=== PATIENT | female | born 1980 | race Caucasian/White ===

== ENCOUNTER 2022-12-20 00:35 | Day surgery (SDC) | payer OTHER, SELFPAY ==
[2022-12-13 12:40] VITALS: BMI 22.1
--- NOTE | 2022-12-13 12:44 | PC.NURSE ---
Report to the Outpatient Waiting Room, entrance under the green pavilion located off [facility], at time 7:30 on date 12/20/22. Planned Procedure Time: 9:30. Time changes happen often and if your time is changed the preop area will call you the afternoon before. - You and your visitor will be asked to self-screen and do not enter if you have any COVID symptoms. - A mask is optional within the hospital at this time. Patients may have clear liquids (water, carbonated beverages, clear teas, apple juice) until 3 hours prior to surgery with a maximum of 20 ounces. - No food from midnight until time of surgery Take the following medications with a SIP of water the morning of surgery: NONE DO NOT STOP ANY OF YOUR OTHER PRESCRIPTION MEDICATIONS PRIOR TO SURGERY ?EXCEPT THE FOLLOWING Medications to discontinue per physician: VITAMINS/SUPPLEMENTS Date to take last dose: 12/16/22 Please no make-up, nail malaysian, hairspray, perfume, deodorant, or body powder the day of surgery. No jewelry (including any body piercings) or valuables the day of surgery, leave them at home. Please take a shower or bath the night before, or the morning of, surgery with an antibacterial soap. Wear comfortable, loose fitting clothing. - Jewelry must be removed prior to entering the operating room. Rings and piercings that are not removed may be cut off. - The hospital will not accept responsibility for valuables. - Please leave all valuables, including medications, at home the day of surgery. If you are going home after surgery, a licensed industrial truck driver must drive you home. - NO public transportation without another adult if you receive anesthesia. - We recommend that an adult stay with you for 24 hours following discharge. - We also recommend that you do not drive, make important decision, drink alcoholic beverages, or take any drugs that were not prescribed by your health care provider for at least 24 hours after your discharge time. Follow any additional instructions given to you from your surgeon. If you or anyone in your household have experienced Covid symptoms in the past week, please notify your surgeon or the nurse liaison at the phone number below for possible testing. Telephone instructions given to PT Lucien VASQUEZ and asked if any additional questions and then verbalized understanding. Patient advised to call surgeon office or pre surgery nurse liaison [phone] if any additional questions.
--- NOTE | 2022-12-18 08:03 | PM.IMHP ---
H&P: HPI History of Present Illness Date/Time: 12/18/22 08:03 42-year-old female presents for bilateral salpingo oophorectomy. Has a history of breast cancer and Oncology has recommended removing ovaries. She has also had a hysterectomy in the past due to uterine fibroids. Chief Complaint: Breast cancer Review of Systems Review of Systems: All systems reviewed & are unremarkable except as noted in HPI and below PMFSH Past Medical History Medical History Abnormal finding of blood chemistry, unspecified BMI 23.0-23.9, adult Breast cancer (~06/2022) did radiation / now on hormone suppression Bronchitis Depressed mood Encounter for preventive health examination Pain in ankle (05/28/17) Pneumonia Routine lab draw Screening for diabetes mellitus Screening for thyroid disorder Screening mammogram, encounter for Sprain of left ankle Vitamin D deficiency Surgical History Surgical History H/O right breast biopsy biopsy and lumpectomy Breast cancer History of gynecological procedure mirena iud insert 2007/ removal 2009/ insert 2010/ removal 2015 / insertion 2015/ removal 05/2015 History of hysteroscopy (01/10/18) Hyster D&C, Novasure Ablation, Bilateral Salpingectomy; menometrorrhagia, fibroid uterus, undesired fertility History of robot-assisted laparoscopic hysterectomy (08/06/19) RATLH uterine fibroids S/P breast augmentation Family History Family History Mother Hypertension Social History Social History Smoking status: Never smoker Second hand tobacco smoke exposure: No Alcohol intake: current Alcohol use details: 3-4 EVERY OTHER WEEK Substance use: never Substance use type: does not use Lack of Transportation: No Lack of Food: Never True Current Housing: I Have Housing Concerned About Future Housing: No Difficulty Paying Gas/Electric Bills: No Difficulty Paying for Meds: No Currently Unemployed: No Education: High School Diploma/GED Living arrangements: with family Additional living arrangements comments: Occupation/Education: occupation 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 Gender identity (if verbalized by the patient): Female Sexual Orientation (if Verbalized by the Patient): Straight or Heterosexual Spiritual care concerns: No Meds Home Medications and Allergies Home Medications Medication Instructions Recorded Confirmed Type cholecalciferol (vitamin D3) 1,250 See Rx Instructions .Route 03/08/22 12/13/22 Rx mcg (50,000 unit) capsule .COMPLEX #10 caps goserelin 3.6 mg subcutaneous 3.6 mg subcut Q28D 11/28/22 12/13/22 History implant anastrozole 1 mg tablet 1 mg PO HS 12/13/22 12/13/22 History calcium carbonate 600 mg calcium 1,200 mg PO DAILY 12/13/22 12/13/22 History (1,500 mg) tablet (Calcium) Allergies Allergy/AdvReac Type Severity Reaction Status Date / Time No Known Allergies Allergy Mild Verified 12/13/22 12:38 Exam Const: General: cooperative, healthy appearing and comfortable Resp: Effort & Inspection: normal respiratory effort Auscultation: clear to auscultation bilaterally Cardio: Rate: regular rate Rhythm: regular rhythm GI: Inspection: normal to inspection Auscultation: normal bowel sounds : External Female Exam: normal external appearance Speculum Exam - Vagina: normal appearance of the vagina Speculum Exam - Cervix: Cervix absent Bimanual exam- vagina & uterus: uterus absent Bimanual Exam- Adnexa, other: normal adnexae Assessment and Plan Assessment and plan (1) Breast cancer: Onset Date: ~06/2022 Code(s): C50.919 - Malignant neoplasm of unspecified site of unspecified female breast Status: Acute Assessment and Plan: Pr
[2022-12-20] VITALS (9 sets, daily range): BP systolic 114–123; BP diastolic 64–84; PULSE 56–83; RESP 12–20; TEMP 36.6–37.2; O2SAT 95–100
--- NOTE | 2022-12-20 07:22 | WPDHPUPDATE1 ---
History and Physical Update Update Date/Time: 12/20/22 07:22 History and Physical has been reviewed, including an updated exam of the patient. There are NO changes in the patient's condition. Risks, benefits, and alternatives have been discussed and questions answered. Patient agrees to proceed with procedure.
[2022-12-20] MEDS: SCOPOLAMINE 1.5 MG PATCH TRANSDERM (08:44)
[2022-12-20] MEDS: ACETAMINOPHEN 500 MG TABLET 1000 MG PO (08:45)
[2022-12-20] MEDS: LACTATED RINGERS 1,000 ML 30 ML IV CONT ×2 (08:50→10:46)
[2022-12-20] MEDS: KETOROLAC 15 MG/ML VIAL (*BKC) IV PUSH (08:55)
--- NOTE | 2022-12-20 08:57 | WPDANESEPPF ---
Anes - Initial Pre Proc Eval Procedure: Operation Date: 12/20/22 09:30 Proposed Procedures p Robotic Assisted Laparoscopic Bilateral Salpingo oophorectomy - Alonso Castro MD Date/Time: 12/20/22 08:57 Surgeon: Alonso Castro MD Pre Op Diagnosis: breast CA Patient Data Age: 42 Gender: F Height: 1.6 m Weight: 56.7 kg Allergies Allergy/AdvReac Type Severity Reaction Status Date / Time No Known Allergies Allergy Mild Verified 12/13/22 12:38 Home Medications Medication Instructions Recorded Confirmed Type cholecalciferol (vitamin D3) 1,250 See Rx Instructions .Route 03/08/22 12/20/22 Rx mcg (50,000 unit) capsule .COMPLEX #10 caps goserelin 3.6 mg subcutaneous 3.6 mg subcut Q28D 11/28/22 12/20/22 History implant anastrozole 1 mg tablet 1 mg PO HS 12/13/22 12/20/22 History calcium carbonate 600 mg calcium 1,200 mg PO DAILY 12/13/22 12/20/22 History (1,500 mg) tablet (Calcium) Patient hx anesthesia problems: none Family hx anesthesia problems: none Results Review: All pre-operative results and documents have been reviewed as part of the pre-operative evaluation. [facility] Past Medical History Medical History Abnormal finding of blood chemistry, unspecified BMI 23.0-23.9, adult Breast cancer (~06/2022) did radiation / now on hormone suppression Bronchitis Depressed mood Encounter for preventive health examination Pain in ankle (05/28/17) Pneumonia Routine lab draw Screening for diabetes mellitus Screening for thyroid disorder Screening mammogram, encounter for Sprain of left ankle Vitamin D deficiency Surgical History Surgical History H/O right breast biopsy biopsy and lumpectomy Breast cancer History of gynecological procedure mirena iud insert 2007/ removal 2009/ insert 2010/ removal 2016 / insertion 2015/ removal 05/2015 History of hysteroscopy (01/10/18) Hyster D&C, Novasure Ablation, Bilateral Salpingectomy; menometrorrhagia, fibroid uterus, undesired fertility History of robot-assisted laparoscopic hysterectomy (08/06/19) RATLH uterine fibroids S/P breast augmentation Family History Family History Mother Hypertension Social History Social History Smoking status: Never smoker Second hand tobacco smoke exposure: No Alcohol intake: current Alcohol use details: 3-4 EVERY OTHER WEEK Substance use: never Substance use type: does not use Lack of Transportation: No Lack of Food: Never True Current Housing: I Have Housing Concerned About Future Housing: No Difficulty Paying Gas/Electric Bills: No Difficulty Paying for Meds: No Currently Unemployed: No Education: High School Diploma/GED Living arrangements: with family Additional living arrangements comments: Occupation/Education: occupation 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 Gender identity (if verbalized by the patient): Female Sexual Orientation (if Verbalized by the Patient): Straight or Heterosexual Spiritual care concerns: No Anes - Eval Final PreProcedure Day of Procedure 12/20/22 08:57 Patient weight: normal Heart: regular rate and rhythm Lungs: clear to auscultation Airway: Mallampati scale class II Neurological: alert and oriented Last oral intake: >/= 8 hours ASA classification: II Emergent: no Anesthetic plan: proceed Anesthesia type and monitoring: general ETT and standard monitoring Results Review: All pre-operative results and documents have been reviewed as part of the pre-operative evaluation. Informed Consent: The patient's anesthetic plan and its attendant risks and benefits were discussed with the patient/family/POA. Questions were solicited and answers provided to the satisfaction of t
[2022-12-20 09:06] LABS: Hematocrit 40.6 % (37.0-47.0); Hemoglobin 14.4 g/dL (12.0-15.0); Mean Corpuscular HGB Conc 35.5 g/dl (32-36); Mean Corpuscular Hemoglobin 30.3 pg (26-34); Mean Corpuscular Volume 85.5 fl (80-100); Mean Platelet Volume 8.4 fl (7.4-10.4); Platelet Count Result 253 k/mm3 (150-375); Red Blood Count 4.75 M/mm3 (4.2-5.4); Red Cell Distribution Width 12.2 % (11.5-14.5); White Blood Count 11.4 K/mm3 (4.5-10.0)
[2022-12-20] MEDS: ceFAZolin SODIUM 1 GM VIAL 2 GM IV PUSH (09:38)
--- NOTE | 2022-12-20 10:06 | W.PM.PROC2 ---
Procedure Note - Detailed Date of Procedure 12/20/22 Pre-op Diagnosis breast CA Post-op Diagnosis Same Procedure Performed Robot assisted laparoscopic bilateral oophorectomy Surgeon Alonso Castro MD Anesthesia General Description of Procedure Patient prepped and draped in usual manner. Abdominal trocar sites were marked and trocars were placed under direct visualization. Trocars were tested Isamar system instruments were then placed under direct visualization. Surgeon moved to the console and bilaterally the ovaries were noted to be without abnormality other than slight adhesion to the pelvic sidewall. These were readily taken down the infundibulopelvic ligament was cauterized cut bilaterally and ovaries were removed without difficulty. Prior hysterectomy with salpingectomy was noted. At this point gas was allowed to escape trocars removed incisions approximated using 4-0 Monocryl. Patient was sent to recovery room in stable condition. Estimated Blood Loss 10 Drains No Packing No Pathology Yes Complications No immediate complications Condition Stable Disposition PACU [facility] Billing Surgery - Charge Forward: Surgery Billing
[2022-12-20] MEDS: fentaNYL CITRATE INJ (*CRX) 100 MCG/2 ML VIAL 25 MCG IV PUSH ×5 (10:44→11:34)
[2022-12-20] MEDS: oxyCODONE HCL (*CRX) 5 MG TAB IR PO (11:52)
== END 2022-12-20 12:25 | disposition home or self-care (01) ==
PROVIDERS: PCP Internal Medicine; Visit Provider Obstetrics & Gynecology
PROC: 8E0W4CZ Robotic Assisted Procedure of Trunk Region, Percutaneous Endoscopic Approach (ICD-10-PCS; CPT 49320; principal; 2022-12-20 09:30)
DX: Z40.02 Encounter for prophylactic removal of ovary(s) (principal); N83.292 Other ovarian cyst, left side; N83.291 Other ovarian cyst, right side; N83.12 Corpus luteum cyst of left ovary; N83.11 Corpus luteum cyst of right ovary; N70.11 Chronic salpingitis; F32.A Depression, unspecified; E55.9 Vitamin D deficiency, unspecified; Z98.82 Breast implant status; Z92.3 Personal history of irradiation; Z85.3 Personal history of malignant neoplasm of breast; Z79.811 Long term (current) use of aromatase inhibitors
CPT/HCPCS: 58661; S2900; 36415; 85027; 86850; 86900; 86901; 87086; 88305; A9270; J0690; J1100; J1885; J2250; J2405; J2704; J3010; J7030; J7120